=== PATIENT | male | born 1990 | race Caucasian/White ===

== ENCOUNTER 2021-09-07 11:57 | Observation (INO) ==
[2021-09-07] MEDS ORDERED: *HR* Dextrose 50 % in Water (Syg) 50 ML SYRINGE ONE (13:28)
[2021-09-07] MEDS ORDERED: D5% in Water 1,000 ML IVC PRN (13:31)
[2021-09-07] MEDS ORDERED: Dextrose 4 GM Chewable Tablets PO PRN ×2 (13:31)
[2021-09-07] MEDS: Naloxone 0.4 MG/ML INJ IVP PRN ×3 (13:39→17:44)
[2021-09-07] MEDS: *HR* Dextrose 50 % in Water (Syg) 50 ML SYRINGE IVP PRN ×2 (13:44→16:52)
[2021-09-07] MEDS ORDERED: 0.9 % Sodium Chloride 1,000 ML IV ONE (13:57)
[2021-09-07] MEDS ORDERED: *HR* Metoprolol 5 MG/5 ML VIAL IVP ONE (14:00)
[2021-09-07] MEDS ORDERED: Ondansetron ODT 4 MG TAB.RAPDIS SL PRN (14:19)
[2021-09-07] MEDS ORDERED: DilTIAZem 50 MG/50 ML IV.SOLN IVC SCH (14:30)
[2021-09-07] MEDS ORDERED: 0.9 % Sodium Chloride 500 ML IVC ONE (15:14)
[2021-09-07 15:34] LABS: Troponin I 0.2 ng/mL (< 0.04)
[2021-09-07] MEDS: Ringers Solution, Lactated 1,000 ML IVC SCH ×2 (17:04→22:28)
[2021-09-07] MEDS ORDERED: Naloxone 0.4 MG/ML INJ IVP PRN (18:17)
[2021-09-07] MEDS ORDERED: cefTRIAXone 2,000 MG in 0.9 % Sodium Chloride 20 ML IVP SCH (19:00)
[2021-09-07 19:19] LABS: Alanine Aminotransferase 180 Units/L (7-52); Albumin 3.7 g/dL (3.5-5.7); Albumin/Globulin Ratio 1.9 (1.1-2.2); Alkaline Phosphatase 64 Units/L (34-104); Aspartate Amino Transferase 155 Units/L (13-39); BUN/Creatinine Ratio 24 (6-26); Bilirubin,Total 1.1 mg/dL (0.3-1.0); Blood Urea Nitrogen 39 mg/dL (6-20); Calcium 7.3 mg/dL (8.6-10.3); Carbon Dioxide 17 mEq/L (23-29); Chloride 107 mEq/L (98-107); Globulin 1.9 g/dL (2.4-3.5); Glucose 166 mg/dL (70-105); Osmolality,Calculated 289 (280-300); Potassium 6.1 mEq/L (3.5-5.1); Sodium 133 mEq/L (136-145); Total Protein 5.6 g/dL (6.4-8.9); eGFR For African Americans > 60 (> 60); eGFR For Non-African Americans 50 (> 60)
[2021-09-07 19:23] LABS: Troponin I 0.36 ng/mL (< 0.04)
[2021-09-07 20:05] LABS: ABG Base Excess -5 mEq/L (-2 to 3); ABG HCO3 20 mEq/L (21-27); ABG Oxygen Saturation 97 % (95-98); ABG PCO2 38 mmHg (35-45); ABG PH 7.34 pH Units (7.32-7.45); ABG PO2 93 mmHg (85-104); ABG TCO2 21 mEq/L (20-26)
[2021-09-07] MEDS: Ampicillin/Sulbactam 3,000 MG in 0.9 % Sodium Chloride Mini Bag 100 ML IVPB SCH (22:27)
[2021-09-07] MEDS: *HR* Heparin 5,000 UNIT/ML VIAL SQ SCH (22:27)
[2021-09-08] MEDS ORDERED: Ampicillin/Sulbactam 3,000 MG in 0.9 % Sodium Chloride Mini Bag 100 ML IVPB SCH
[2021-09-08 03:07] LABS: Hematocrit 42.7 % (37.5-50.1); Hemoglobin 14.1 g/dL (12.9-16.9); Mean Corpuscular Hemoglobin 29.6 pg (28.0-33.3); Mean Corpuscular Volume 89.7 fL (83.0-100.0); Mean Platelet Volume 9.3 fL (9.4-12.4); Platelet Count 214 K/mcL (140-400); Red Blood Count 4.76 M/mcL (4.19-5.50); Red Cell Distribution Width 14.1 % (11.5-14.5); White Blood Count 12.9 K/mcL (4.3-11.1)
[2021-09-08 03:14] LABS: INR 1.3
[2021-09-08 03:31] LABS: Alanine Aminotransferase 290 Units/L (7-52); Albumin 3.6 g/dL (3.5-5.7); Alkaline Phosphatase 57 Units/L (34-104); Aspartate Amino Transferase 254 Units/L (13-39); BUN/Creatinine Ratio 27 (6-26); Bilirubin,Total 0.8 mg/dL (0.3-1.0); Blood Urea Nitrogen 30 mg/dL (6-20); Calcium 8.1 mg/dL (8.6-10.3); Carbon Dioxide 21 mEq/L (23-29); Chloride 105 mEq/L (98-107); Creatine Kinase 1143 Units/L (30-223); Globulin 1.8 g/dL (2.4-3.5); Glucose 119 mg/dL (70-105); Magnesium 1.7 mg/dL (1.6-2.6); Osmolality,Calculated 285 (280-300); Potassium 4.3 mEq/L (3.5-5.1); Sodium 134 mEq/L (136-145); Total Protein 5.4 g/dL (6.4-8.9); eGFR For African Americans > 60 (> 60); eGFR For Non-African Americans > 60 (> 60)
[2021-09-08] MEDS: Naloxone 2 MG in 0.9 % Sodium Chloride 500 ML IVC SCH ×2 (05:08→05:09)
[2021-09-08] MEDS: *HR* Heparin 5,000 UNIT/ML VIAL SQ SCH ×3 (05:33→21:46)
[2021-09-08] MEDS: Ampicillin/Sulbactam 3,000 MG in 0.9 % Sodium Chloride Mini Bag 100 ML IVPB SCH ×4 (05:37→23:16)
[2021-09-08] MEDS: Ringers Solution, Lactated 1,000 ML IVC SCH ×3 (05:38→23:15)
[2021-09-08] MEDS ORDERED: 0.9 % Sodium Chloride 1,000 ML IVC SCH (07:45)
[2021-09-09 03:09] LABS: Hematocrit 38.1 % (37.5-50.1); Hemoglobin 12.7 g/dL (12.9-16.9); Mean Corpuscular HGB Conc 33.3 g/dL (31.6-35.5); Mean Corpuscular Hemoglobin 30.5 pg (28.0-33.3); Mean Corpuscular Volume 91.4 fL (83.0-100.0); Mean Platelet Volume 9.6 fL (9.4-12.4); Platelet Count 175 K/mcL (140-400); Red Blood Count 4.17 M/mcL (4.19-5.50); White Blood Count 8.4 K/mcL (4.3-11.1)
[2021-09-09 03:25] LABS: BUN/Creatinine Ratio 19 (6-26); Blood Urea Nitrogen 15 mg/dL (6-20); Calcium 8.3 mg/dL (8.6-10.3); Carbon Dioxide 26 mEq/L (23-29); Chloride 108 mEq/L (98-107); Glucose 112 mg/dL (70-105); Osmolality,Calculated 292 (280-300); Potassium 4.5 mEq/L (3.5-5.1); Sodium 140 mEq/L (136-145); eGFR For African Americans > 60 (> 60); eGFR For Non-African Americans > 60 (> 60)
[2021-09-09] MEDS: *HR* Heparin 5,000 UNIT/ML VIAL SQ SCH (05:47)
[2021-09-09] MEDS: Ampicillin/Sulbactam 3,000 MG in 0.9 % Sodium Chloride Mini Bag 100 ML IVPB SCH ×2 (05:47→11:13)
[2021-09-09 07:36] VITALS: TEMP 98.8
[2021-09-09] MEDS: Ringers Solution, Lactated 1,000 ML IVC SCH (08:23)
[2021-09-09 11:54] VITALS: BP 122/76; PULSE 98; O2SAT 100
== END 2021-09-09 15:35 | disposition home or self-care (01) ==
LOC: 3NENU → 2NNU 16:38 → 3NENU 09-08 13:08
PROVIDERS: ADMIT Internal Medicine; ATTEND Internal Medicine